=== PATIENT | female | born 1970 | race Caucasian/White ===

== ENCOUNTER 2023-03-09 07:34 | Outpatient (CLI) | payer OTHER, SELFPAY | END 2023-03-09 07:35 | disposition home or self-care (01) | LOC: NFLDREF 03-13 14:29 | PROVIDERS: Visit Provider Physician Assistant Medical | DX: R30.0 Dysuria (principal); N39.0 Urinary tract infection, site not specified; N30.00 Acute cystitis without hematuria | CPT/HCPCS: 87086; 87186 ==

== ENCOUNTER 2023-03-24 16:43 | Outpatient (CLI) | payer OTHER, SELFPAY | END 2023-03-24 16:44 | disposition home or self-care (01) | LOC: NFLDREF 03-25 11:26 | PROVIDERS: Visit Provider Nurse Practitioner | DX: N30.00 Acute cystitis without hematuria (principal); B96.20 Unspecified Escherichia coli [E. coli] as the cause of diseases classified elsewhere | CPT/HCPCS: 87086; 87186 ==

== ENCOUNTER 2023-04-28 08:24 | Outpatient (CLI) | payer OTHER, SELFPAY | END 2023-04-28 08:25 | disposition home or self-care (01) | LOC: NFLDREF 05-01 07:54 | PROVIDERS: PCP Family Medicine; Referring Provider Family Medicine; Visit Provider Family Medicine | DX: E11.43 Type 2 diabetes mellitus with diabetic autonomic (poly)neuropathy (principal); E78.2 Mixed hyperlipidemia; K90.0 Celiac disease | CPT/HCPCS: 80048; 80061 ==

== ENCOUNTER 2023-09-15 08:24 | Outpatient (CLI) | payer OTHER, SELFPAY | END 2023-09-15 08:25 | disposition home or self-care (01) | LOC: NFLDREF 09-16 08:24 | PROVIDERS: PCP Family Medicine; Referring Provider Family Medicine; Visit Provider Family Medicine | DX: N39.0 Urinary tract infection, site not specified (principal) | CPT/HCPCS: 87086; 87186 ==

== ENCOUNTER 2023-10-21 09:54 | Outpatient (CLI) | payer OTHER, SELFPAY | END 2023-10-21 09:55 | disposition home or self-care (01) | PROVIDERS: PCP Family Medicine; Visit Provider Family Medicine | DX: N92.1 Excessive and frequent menstruation with irregular cycle (principal); E10.9 Type 1 diabetes mellitus without complications; R53.83 Other fatigue | CPT/HCPCS: 80048; 82670; 84443 ==

== ENCOUNTER 2023-11-13 14:30 | Outpatient (CLI) | payer OTHER, SELFPAY | END 2023-11-13 14:31 | disposition home or self-care (01) | PROVIDERS: PCP Family Medicine; Visit Provider Nurse Practitioner Family | DX: M85.80 Other specified disorders of bone density and structure, unspecified site (principal); M79.671 Pain in right foot; M79.672 Pain in left foot; R53.83 Other fatigue; Z13.21 Encounter for screening for nutritional disorder | CPT/HCPCS: 82306; 82607; 83735; 84550 ==

== ENCOUNTER 2023-12-08 13:47 | Outpatient (CLI) | payer OTHER, SELFPAY ==
[2023-12-08 20:03] LABS: Chlamydia DNA Amplified* NOT DETECTED (No Detected); GC DNA Amplified* NOT DETECTED (No Detected)
== END 2023-12-08 13:48 | disposition home or self-care (01) ==
PROVIDERS: PCP Family Medicine; Visit Provider Physician Assistant
DX: Z01.419 Encounter for gynecological examination (general) (routine) without abnormal findings (principal); Z11.3 Encounter for screening for infections with a predominantly sexual mode of transmission; Z11.59 Encounter for screening for other viral diseases
CPT/HCPCS: 86592; 86703; 86803; 87340; 87491; 87591

== ENCOUNTER 2024-01-04 09:52 | Outpatient (CLI) | payer OTHER, SELFPAY ==
--- NOTE | 2024-01-04 10:18 | W.ANESCHARGE ---
Anesthesia Charges Start Date/Time Anesthesia Start Date: 01/04/24 Anesthesia Start Time: 10:25 Stop Date/Time Anesthesia Stop Date: 01/04/24 Anesthesia Stop Time: 10:47
--- NOTE | 2024-01-04 10:51 | W.ANESCHARGE ---
Anesthesia Charges Start Date/Time Anesthesia Start Date: 01/04/24 Anesthesia Start Time: 10:25 Stop Date/Time Anesthesia Stop Date: 01/04/24 Anesthesia Stop Time: 10:47
== END 2024-01-04 09:53 | disposition home or self-care (01) ==
LOC: OP CLINIC 09:53
PROVIDERS: PCP Family Medicine; Visit Provider Surgery
DX: Z12.11 Encounter for screening for malignant neoplasm of colon (principal); Z83.719 Family history of colon polyps, unspecified
CPT/HCPCS: 00812; 45378; J2704

== ENCOUNTER 2024-01-12 15:04 | Outpatient (CLI) | payer OTHER, SELFPAY ==
--- NOTE | 2024-01-12 15:00 | CRLHL7_ITS ---
For Patients: As a result of the Century Cures Act, medical imaging exams and procedure reports are released immediately into your electronic medical record. You may view this report before your referring provider. If you have questions, please contact your health care provider. BILATERAL SCREENING MAMMOGRAM WITH COMPUTER-AIDED DETECTION AND TOMOSYNTHESIS TECHNIQUE: CC and MLO views were obtained. These mammographic images have been obtained using full-field digital technique. These mammographic images were interpreted with the benefit of computer-aided detection. Breast Tomosynthesis was used in this interpretation. COMPARISON FILM: 09/15/22, 11/22/19, 05/20/18. FINDINGS: The breasts are heterogeneously dense, which may obscure small masses. IMPRESSION: There is no radiographic evidence for malignancy. ASSESSMENT: BI-RADS Category 1: Negative RECOMMENDATION: Routine screening mammogram in 1 year. A lay language report of this examination will be provided to the patient. Pedro Gupta M.D. Diagnostic Radiologist [email or web address] SP/Dictated by: Pedro Gupta MD @ 01/13/2024 12:28:00 PM (Electronically Signed)
== END 2024-01-12 15:05 | disposition home or self-care (01) ==
LOC: MAMMO 15:05
PROVIDERS: PCP Family Medicine; Visit Provider Family Medicine
DX: Z12.31 Encounter for screening mammogram for malignant neoplasm of breast (principal); R92.333 Mammographic heterogeneous density, bilateral breasts
CPT/HCPCS: 77063; 77067

== ENCOUNTER 2024-05-13 11:48 | Outpatient (CLI) | payer OTHER, SELFPAY | END 2024-05-13 11:49 | disposition home or self-care (01) | LOC: NFLDREF 05-14 06:17 | PROVIDERS: PCP Family Medicine; Referring Provider Family Medicine; Visit Provider Nurse Practitioner Family | DX: N30.01 Acute cystitis with hematuria (principal); B96.20 Unspecified Escherichia coli [E. coli] as the cause of diseases classified elsewhere | CPT/HCPCS: 87086 ==

== ENCOUNTER 2024-05-28 20:58 | Inpatient (IN) | payer OTHER, SELFPAY ==
[2024-05-28] VITALS (20 sets, daily range): BP systolic 95–118; BP diastolic 54–78; PULSE 115–134; RESP 9–34; TEMP 37.7; O2SAT 92–97; BMI 26.6
--- NOTE | 2024-05-28 21:40 | CRLHL7_ITS ---
For Patients: As a result of the Century Cures Act, medical imaging exams and procedure reports are released immediately into your electronic medical record. You may view this report before your referring provider. If you have questions, please contact your health care provider. INDICATION: Concern for pyelonephritis. TECHNIQUE: CT abdomen and pelvis acquired with 78 cc Isovue-370 IV contrast. COMPARISON: None. FINDINGS: Lower chest: Mild bibasilar subsegmental atelectasis/scarring. Liver: Unremarkable. Normal in size and attenuation. No suspicious masses. Gallbladder and bile ducts: Cholecystectomy. No biliary dilatation. Pancreas: Unremarkable. No mass or inflammation. Spleen: Unremarkable. Normal in size. No masses. Adrenal glands: Unremarkable. No nodules. Kidneys: No suspicious masses or hydroureteronephrosis. Excreted contrast in the urinary collecting systems limits evaluation for small stones. Urinary bladder: Diffusely thick-walled with mild mucosal hyperenhancement. GI tract: Unremarkable. Normal in caliber. No sign of mass or inflammation. Normal appendix. Vasculature: Abdominal aorta is normal in caliber. Mesenteric arteries are patent. Lymph nodes: No lymphadenopathy. Peritoneum/Abdominal Wall: Unremarkable. No sign of mass or infiltration. No free air or significant free fluid. Pelvis: Right ovarian 4.5 cm cystic focus with an inferior septation measures just greater than simple fluid density. Bones: Unremarkable for age. IMPRESSION: 1. The urinary bladder is diffusely thick-walled with associated inflammatory changes, concerning for cystitis. No discrete findings to indicate pyelonephritis. 2. Mildly complex right ovarian 4.5 cm cyst. Please note that all CT scans at this facility use dose modulation, iterative reconstruction, and/or weight-based dosing when appropriate to reduce radiation dose to as low as reasonably achievable. Dictated by Julian Lyle MD @ 05/28/2024 11:57:48 PM (Electronically Signed)
--- NOTE | 2024-05-28 21:46 | ED_ITS ---
HPI - General Adult General Date Seen: 05/28/24 Chief complaint: Urogenital Problems, Female Stated complaint: diabetic issues, possible kidney infections Time Seen by Provider: 05/28/24 21:33 Source: patient Mode of arrival: ambulatory Limitations: no limitations History of Present Illness HPI narrative: Patient is a 53-year-old female presenting to emergency department for concerns of pyelonephritis. She is a diabetic and states she was treated with a UTI last month and she thought she was doing better up until today when she some knee head severe flank pain with the left worse than the right. States the pain seems to be coming and going along with episodes of nausea. Has been feeling chills and feverish but has not had any objective fevers. Has also had multiple episodes of vomiting and states she feels currently nauseated. Has noticed some dysuria That has restarted this morning also. denies chest pain, shortness of breath, headaches. States she is feeling lightheaded. Does feel mildly dehydrated. Has not been able to eat or drink anything all day. Has not noticed any diarrhea or constipation. No history of smoking. Has a previous cholecystectomy. No other concerns noted. Related Data Home Medications ?Medication ?Instructions ?Recorded ?Confirmed levonorgestrel (Mirena) 1 device intrauterine ONCE 03/09/23 05/13/24 subcutaneous insulin pump (t:slim 04/28/23 05/13/24 X2 Control-IQ) cholecalciferol (vitamin D3) 25 25 mcg PO QDAY 09/15/23 05/13/24 mcg (1,000 unit) capsule (Vitamin D3) Previous Rx's ?Medication ?Instructions ?Recorded blood-glucose sensor (Dexcom G6 #6 ea 07/14/23 Sensor device) blood-glucose transmitter (Dexcom #1 ea 07/14/23 G6 Transmitter device) Humalog U-100 Insulin 100 unit/mL 30 unit (0.3 mL) subcut QDAY #20 mL 10/21/23 subcutaneous solution (insulin lispro) escitalopram oxalate 5 mg tablet 5 mg PO QDAY #90 tabs 10/21/23 (Lexapro) Allergies Allergy/AdvReac Type Severity Reaction Status Date / Time gluten Allergy Severe Unknown Verified 05/28/24 23:38 metoclopramide Allergy Severe Verified 05/28/24 23:38 nitrofurantoin (From Allergy Intermediate Hives Verified 05/28/24 23:38 Macrobid) sertraline Allergy Mild Microscopic Verified 05/28/24 23:38 Colitis fluoxetine (From Prozac) AdvReac Unknown Fatigued Verified 05/28/24 23:38 Review of Systems Status of ROS: Reports: 10 or more systems reviewed and unremarkable except as noted in History and below [facility] Medical History Cataracts, bilateral ?H26.9 - Unspecified cataract (ICD-10) Fracture of right fibula ?S82.401A - Unspecified fracture of shaft of right fibula, initial encounter for closed fracture (ICD-10) Mixed hyperlipidemia ?E78.2 - Mixed hyperlipidemia (ICD-10) Diabetic gastroparesis ?E11.43 - Type 2 diabetes mellitus with diabetic autonomic (poly)neuropathy (ICD-10) ?K31.84 - Gastroparesis (ICD-10) Adjustment disorder with depressed mood ?F43.21 - Adjustment disorder with depressed mood (ICD-10) History of seizures ?Z87.898 - Personal history of other specified conditions (ICD-10) IUD (intrauterine device) in place ?Z97.5 - Presence of (intrauterine) contraceptive device (ICD-10) Osteopenia ?M85.80 - Other specified disorders of bone density and structure, unspecified site (ICD-10) Stable proliferative diabetic retinopathy of both eyes associated with type 1 diabetes mellitus ?E10.3553 - Type 1 diabetes mellitus with stable proliferative diabetic retinopathy, bilateral (ICD-10) Menometrorrhagia ?N92.1 - Excessive and frequent menstruation with irregular cycle (ICD-10) Celiac disease ?K90.0 - Celiac disease (ICD-10) Type 1 diabetes mellitus ?E10.9 - Type 1 diabetes mellitus without complications (ICD-10) Surgical History History of vaginal delivery History of trigger finger (05/16/22) ?Z87.39 - Personal history of other diseases of the musculoskeletal system and connective tissue (ICD-10) History of laser iridotomy (1994) ?Z98.890 - Other specified postprocedural states (ICD-10) History of panretinal photocoagulation (1997) ?Z98.890 - Other specified postprocedural states (ICD-10) History of open reduction and internal fixation (ORIF) procedure (2019) ?Z98.890 - Other specified postprocedural states (ICD-10) Pilonidal sinus (08/10/14) ?L05.92 - Pilonidal sinus without abscess (ICD-10) History of tonsillectomy (1993) ?Z90.89 - Acquired absence of other organs (ICD-10) History of cholecystectomy (1994) ?Z90.49 - Acquired absence of other specified parts of digestive tract (ICD- 10) Family History Sister Ovarian cancer, Onset Age: 42 Type 2 diabetes mellitus Primary biliary cholangitis, Onset Age: 47 Anxiety Asthma Chronic fatigue syndrome Depression Diabetes Drug abuse Thyroid disease Lymphoma, Onset Age: 58 Suicide attempt Brother Alcohol dependence Coagulation disorder Drug abuse Cancer of ethmoid sinus Aunt Breast cancer Father Coronary artery disease Glaucoma High blood pressure Mother Coronary artery disease Myocardial infarction High blood pressure Paternal Grandmother Glaucoma Maternal Grandmother Pancreatic cancer, Onset Age: 65 Maternal Grandfather Depression Suicide, Onset Age: 84 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 Alcohol use: 2-4 per week What is your current living situation?: I presently have a place to live Problems where you live: no known problems In the past 12 months, utilities in danger of being shut off: yes In past 12 months, lack of transportation kept you from medical appts, meetings, work, or getting things needed for daily living: no In the past 12 mos, have been you worried that your food would run out before you had money to buy more?: never true In the past 12 mos, the food you bought just didn't last and you didn't have money to buy more?: never true Smoking Status: Former smoker What tobacco products do you use: cigarettes Smoking quit date/years: <= 15 years ago Do you use any of these nicotine containing products: None Second hand tobacco smoke exposure: No How often does anyone, including family, friends and others, physically hurt you : never How often does anyone, including family, friends and others, insult or talk down to you: never How often does anyone, including family, friends and others, threaten you with harm: never How often does anyone, including family, friends and others, scream or curse at you: never Exam Narrative: Exam Narrative: Const: Well-nourished, Well-developed, in moderate distress Eyes: PERRL, no conjunctival injection, and symmetrical lids HENT: Atraumatic external nose and ears. Moist mucous membranes. Neck: Symmetric, trachea midline, No thyromegaly. CVS: tachycardic, No murmurs or gallops. Peripheral pulses 2+ and equal in all extremities RESP: Unlabored respiratory effort. Clear to auscultation bilaterally. GI: Mild suprapubic tenderness,Nondistended, No rebound or guarding. mild left CVA tenderness MSK:Extremities w/o deformity, Normal Active ROM Skin: Warm, Dry. No rashes or lesions. Neuro: Normal Muscle tone, No focal neurological deficits. Psych: Awake, Alert, & Oriented x3. Appropriate mood and affect. Const: Vital Signs, click to edit/add: Vital Signs - 24 hr 05/28/24 21:13 05/28/24 21:55 05/28/24 22:00 Temperature 99.8 F H Pulse Rate 132 H 126 H Pulse Rate [Pulse Oximeter] 134 H Respiratory Rate 24 9 L Blood Pressure Blood Pressure [Ri ght Upper Arm] 109/58 L Pulse Oximetry 93 92 93 Oxygen Delivery Me thod Room Air 05/28/24 22:02 05/28/24 22:07 05/28/24 22:11 Temperature Pulse Rate 127 H 128 H 127 H Pulse Rate [Pulse Oximeter] Respiratory Rate 21 23 19 Blood Pressure 108/54 L 118/61 113/70 Blood Pressure [Ri ght Upper Arm] Pulse Oximetry 94 95 95 Oxygen Delivery Me thod 05/28/24 22:15 05/28/24 22:16 05/28/24 22:21 Temperature Pulse Rate 126 H 125 H 125 H Pulse Rate [Pulse Oximeter] Respiratory Rate 22 21 20 Blood Pressure 115/59 L 117/60 Blood Pressure [Ri ght Upper Arm] Pulse Oximetry 94 94 94 Oxygen Delivery Me thod 05/28/24 22:27 05/28/24 22:45 05/28/24 22:46 Temperature Pulse Rate 125 H 124 H 122 H Pulse Rate [Pulse Oximeter] Respiratory Rate 23 34 H Blood Pressure 108/58 L Blood Pressure [Ri ght Upper Arm] Pulse Oximetry 94 96 97 Oxygen Delivery Me thod 05/28/24 22:48 05/28/24 23:00 05/28/24 23:15 Temperature Pulse Rate 120 H 116 H 118 H Pulse Rate [Pulse Oximeter] Respiratory Rate 12 17 12 Blood Pressure Blood Pressure [Ri ght Upper Arm] Pulse Oximetry 96 96 94 Oxygen Delivery Me thod 05/28/24 23:20 05/28/24 23:30 05/28/24 23:32 Temperature Pulse Rate 115 H 115 H 115 H Pulse Rate [Pulse Oximeter] Respiratory Rate 12 14 13 Blood Pressure 107/61 95/78 Blood Pressure [Ri ght Upper Arm] Pulse Oximetry 95 93 93 Oxygen Delivery Me thod Course Vital Signs Vital signs: Initial Vital Signs Temperature 99.8 F H 05/28/24 21:13 Temperature Source Temporal Artery Scan 05/28/24 21:13 Pulse Rate 134 H 05/28/24 21:13 Respiratory Rate 24 05/28/24 21:13 Blood Pressure 109/58 L 05/28/24 21:13 Blood Pressure Mean 75 05/28/24 21:13 Blood Pressure Position Sitting 05/28/24 21:13 Pulse Oximetry 93 05/28/24 21:13 Oxygen Delivery Method Room Air 05/28/24 21:13 Vital Signs Temperature 99.8 F H 05/28/24 21:13 Pulse Rate 134 H 05/28/24 21:13 Respiratory Rate 24 05/28/24 21:13 Blood Pressure 109/58 L 05/28/24 21:13 Pulse Oximetry 93 05/28/24 21:13 Oxygen Delivery Method Room Air 05/28/24 21:13 Temperature 99.8 F H 05/28/24 21:13 Pulse Rate 115 H 05/28/24 23:32 Respiratory Rate 13 05/28/24 23:32 Blood Pressure 95/78 05/28/24 23:32 Pulse Oximetry 93 05/28/24 23:32 Oxygen Delivery Method Room Air 05/28/24 21:13 Medications Administered Medications: Discontinued Medications Generic Name Dose Route Start Last Admin Trade Name Freq PRN Reason Stop Dose Admin Sodium Chloride 1,000 mls @ 1,000 mls/hr 05/28/24 21:45 05/28/24 23:31 0.9 % Sodium Chloride 1000 Ml IV 05/28/24 23:56 1,000 mls/hr .Q1H MELISSA Administration Ceftriaxone Sodium 1 gm/ 100 mls @ 200 mls/hr 05/28/24 22:23 05/28/24 23:40 Sodium Chloride IVPB 05/28/24 22:24 Infused ONCE ONE Infusion Morphine Sulfate 4 mg 05/28/24 22:50 05/28/24 23:10 Morphine 4 Mg/Ml Inj IVP 05/28/24 22:51 4 mg ONCE ONE Administration Ondansetron HCl 4 mg 05/28/24 22:50 05/28/24 23:05 Ondansetron 2 Mg/Ml Inj IVP 05/28/24 22:51 4 mg ONCE ONE Administration Medical Decision Making MDM Narrative Medical decision making narrative: patient is a 53-year-old female presenting to emergency department for left- sided flank pain. She does not have risk factors for or aortic aneurysm rupture and her symptoms seem more consistent with a pyelonephritis. Will do a CT scan with IV contrast for better evaluation. Differential also includes gastroenteritis, splenic infarctions, nephrolithiasis. She does meet SIRS crit eria and blood cultures and lactate will be ordered. Will also give her fluids per sepsis protocol as she is dehydrated and would benefit from the fluids either way. CBC, CMP, urinalysis, COVID/flu / RSV, EKG, troponin all ordered. Patient's white count came back elevated at 20.51. Lactate is 2.0. Rest for CBC and CMP showed no concerning findings. Viral swabs are negative. Urinalysis clearly shows signs of a UTI. She has already been given fluids per sepsis protocol and will be started on a g of Rocephin. previous urine cultures have all shown E coli sensitive to Rocephin. She is feeling better after the Zofran and morphine. patient has received about half her fluid so far and is still tachycardic. Lactate came back at 2.0. Considering she was recently on an antibiotic for UTI does not appear to have had her UTI resolved she does appear to have failed outpatient management. She is now septic I do believe she should be admitted for IV antibiotics. She is agreeable to this plan. She will be accepted to the hospitalist service Lab Data Labs: Lab Results 04/12/25 04/12/25 04/12/25 Range/Units 21:25 21:40 21:56 WBC 20.51 H (4.50-11.00) K/uL RBC 4.36 (4.00-5.20) m/uL Hgb 13.9 (12.0-16.0) gm/dL Hct 41.6 (33.0-51.0) % MCV 95 (80-100) fL MCH 32 (26-34) pg MCHC 33 (32-36) gm/dL RDW Coeff of Shahe[place] 13.1 (11.5-15.5) % Plt Count 345 (140-440) K/uL Neut % (Auto) 93.9 H (42.0-72.0) % Lymph % (Auto) 1.9 L (20-44) % [place] % (Auto) 3.5 (0.0-11.0) % Eos % (Auto) 0.4 (0.0-7.0) % Baso % (Auto) 0.1 (0.0-3.0) % Neut # (Auto) 19.30 H (1.7-7.0) K/uL Lymph # (Auto) 0.40 L (0.90-2.90) K/uL [place] # (Auto) 0.70 (0.00-0.90) K/UL Eos # (Auto) 0.10 (0.00-0.50) K/uL Baso # (Auto) 0.00 (0.00-0.30) K/uL Abs Immat Gran (auto) 0.00 (0.00-0.30) K/uL Imm/Tot Granulo (auto) 0.2 % Sodium 134 L (135-149) mmol/L Potassium 3.7 (3.6-5.1) mmol/L Chloride 105 (96-114) mmol/L Carbon Dioxide 21 (20-32) mmol/L Anion Gap 8 (7-15) mEq/L BUN 17 (7-30) mg/dL Creatinine 0.9 (0.5-1.5) mg/dL Estimated Creat Clear 60.99 Estimated GFR 76 ml/min Glucose 93 (60-115) mg/dL Lactate 2.0 H (0.5-1.9) mmol/L Calcium 8.9 (8.4-10.6) mg/dL Total Bilirubin 1.1 (0.1-1.5) mg/dL AST 26 (12-35) U/L ALT 21 (4-35) U/L Alkaline Phosphatase 95 (40-150) U/L Troponin I < 0.01 (0.01-0.04) ng/mL Total Protein 6.8 (6.0-8.3) g/dL Albumin 3.9 (3.3-5.0) g/dL Urine Color [place] A (Yellow) Urine Appearance Cloudy A (Clear) Urine pH 5.5 (5.0-8.5) Ur Specific [place] 1.025 (1.000-1.030) Urine Protein 1+ A (Negative) Urine Glucose (UA) Negative (Negative) Urine Ketones 2+ A (Negative) Urine Blood 1+ A (Negative) Urine Nitrite Positive A (Negative) Urine Bilirubin 1+ A (Negative) Urine Urobilinogen 0.2 (0.2-1.0) Ur Leukocyte Esterase 1+ A (Negative) Urine RBC 0-2 (0-2) Urine WBC 50-100 A (0-5) Ur Squamous Epith Cells Few (None-Few) Urine Bacteria Few A (None) SARS-CoV-2 (PCR) Negative SARS-CoV-2 (Negative) Influenza Type A (PCR) Negative PCR FLU A (Negative) Influenza Type B (PCR) Negative PCR FLU B (Negative) RSV (PCR) Negative PCR RSV (Negative) POC Creatinine 1.0 (0.6-1.3) mg/dl 05/28/24 Range/Units 23:40 WBC (4.50-11.00) K/uL RBC (4.00-5.20) m/uL Hgb (12.0-16.0) gm/dL Hct (33.0-51.0) % MCV (80-100) fL MCH (26-34) pg MCHC (32-36) gm/dL RDW Coeff of Shaheen (11.5-15.5) % Plt Count (140-440) K/uL Neut % (Auto) (42.0-72.0) % Lymph % (Auto) (20-44) % [place] % (Auto) (0.0-11.0) % Eos % (Auto) (0.0-7.0) % Baso % (Auto) (0.0-3.0) % Neut # (Auto) (1.7-7.0) K/uL Lymph # (Auto) (0.90-2.90) K/uL [place] # (Auto) (0.00-0.90) K/UL Eos # (Auto) (0.00-0.50) K/uL Baso # (Auto) (0.00-0.30) K/uL Abs Immat Gran (auto) (0.00-0.30) K/uL Imm/Tot Granulo (auto) % Sodium (135-149) mmol/L Potassium (3.6-5.1) mmol/L Chloride (96-114) mmol/L Carbon Dioxide (20-32) mmol/L Anion Gap (7-15) mEq/L BUN (7-30) mg/dL Creatinine (0.5-1.5) mg/dL Estimated Creat Clear Estimated GFR ml/min Glucose (60-115) mg/dL Lactate 1.0 (0.5-1.9) mmol/L Calcium (8.4-10.6) mg/dL Total Bilirubin (0.1-1.5) mg/dL AST (12-35) U/L ALT (4-35) U/L Alkaline Phosphatase (40-150) U/L Troponin I (0.01-0.04) ng/mL Total Protein (6.0-8.3) g/dL Albumin (3.3-5.0) g/dL Urine Color (Yellow) Urine Appearance (Clear) Urine pH (5.0-8.5) Ur Specific [place] (1.000-1.030) Urine Protein (Negative) Urine Glucose (UA) (Negative) Urine Ketones (Negative) Urine Blood (Negative) Urine Nitrite (Negative) Urine Bilirubin (Negative) Urine Urobilinogen (0.2-1.0) Ur Leukocyte Esterase (Negative) Urine RBC (0-2) Urine WBC (0-5) Ur Squamous Epith Cells (None-Few) Urine Bacteria (None) SARS-CoV-2 (PCR) (Negative) Influenza Type A (PCR) (Negative) Influenza Type B (PCR) (Negative) RSV (PCR) (Negative) POC Creatinine (0.6-1.3) mg/dl Imaging Data CT scan abdomen and pelvis: Radiologist's impression: 1. The urinary bladder is diffusely thick-walled with associated inflammatory changes, concerning for cystitis. No discrete findings to indicate pyelonephritis. 2. Mildly complex right ovarian 4.5 cm cyst. Please note that all CT scans at this facility use dose modulation, iterative reconstruction, and/or weight-based dosing when appropriate to reduce radiation dose to as low as reasonably achievable. Dictated by Julian Lyle MD @ 05/28/2024 11:57:48 PM ECG Data Attestation: I personally reviewed and interpreted this ECG as follows: Prior ECG tracings: not available for review Interpretation: Sinus tachycardia with a rate of 129 beats per minute, normal intervals, normal axis, no ST or T-wave abnormalities. Critical Care Time Critical Care Time Critical Care Time: Yes Attestation: The patient required my highest level preparedness to intervene emergently and I personally spent this critical care time directly and personally managing the patient. This critical care time included: Obtaining a history; Examining the patient; Pulse oximetry; Ordering and reviewing of studies; Arranging urgent treatment with development of a management plan; Evaluation of patients response to treatment; Frequent reassessment discussions with other providers. This critical care time was performed to assess and manage the high probability of imminent life-threatening deterioration that could result in multiorgan failure. It was exclusive of separate billable procedures and treating other patients and teaching time. Total Critical Care Time in Minutes: 35 Discharge Plan Discharge Clinical Impression: Urinary tract infection Qualifiers: Urinary tract infection type: acute cystitis Hematuria presence: without hematuria Qualified Code(s): N30.00 - Acute cystitis without hematuria Sepsis Qualifiers: Sepsis type: sepsis due to unspecified organism Sepsis acute organ dysfunction status: without acute organ dysfunction Qualified Code(s): A41.9 - Sepsis, unspecified organism Prescriptions: No Action insulin lispro [Humalog U-100 Insulin] 100 unit/mL solution 30 unit subcut QDAY Qty: 20 5RF escitalopram oxalate [Lexapro] 5 mg tablet 5 mg PO QDAY Qty: 90 3RF Mirena 21 mcg/24 hours (8 yrs) 52 mg intrauterine device 1 device intrauterine ONCE Rx Instructions: as a single dose (DME) t:slim X2 Control-IQ Misc See Rx Instructions .Route Rx Instructions: As directed cholecalciferol (vitamin D3) [Vitamin D3] 25 mcg (1,000 unit) capsule 25 mcg PO QDAY Rx Instructions: stops during summer months (DME) Dexcom G6 Transmitter Device See Rx Instructions .Route Qty: 1 0RF Rx Instructions: As directed (DME) Dexcom G6 Sensor Device See Rx Instructions .Route Qty: 6 5RF Rx Instructions: As directed Follow Up/Referrals: Pedro Bedoya MD [Primary Care Provider] -
[2024-05-28 21:49] LABS: Appearance Urine Cloudy (Clear); Bilirubin Urine 1+ (Negative); Blood Urine 1+ (Negative); Color Urine Orange (Yellow); Glucose Urine Negative (Negative); Ketones Urine 2+ (Negative); Leukocyte Esterase Urine 1+ (Negative); Nitrite Urine Positive (Negative); Protein Urine 1+ (Negative); Specific Gravity Urine 1.025 (1.000-1.030); Urobilinogen Urine 0.2 (0.2-1.0); pH Urine 5.5 (5.0-8.5)
[2024-05-28] MEDS: 0.9 % SODIUM CHLORIDE 1000 ml 1,000 ML IV ×2 (21:53→23:31)
[2024-05-28 21:54] LABS: Basophils Percent Auto 0.1 % (0.0-3.0); Eosinophils Percent Auto 0.4 % (0.0-7.0); Hematocrit 41.6 % (33.0-51.0); Hemoglobin* 13.9 gm/dL (12.0-16.0); Immature Granulocytes Pct Auto 0.2 %; Lymphocytes Percent Auto 1.9 % (20-44); Mean Corpuscular HGB Conc 33 gm/dL (32-36); Mean Corpuscular Hemoglobin 32 pg (26-34); Mean Corpuscular Volume 95 fL (80-100); Monocytes Percent Auto 3.5 % (0.0-11.0); Neutrophils Percent Auto 93.9 % (42.0-72.0); Platelet Count* 345 K/uL (140-440); RDW Coefficient of Variation % 13.1 % (11.5-15.5); Red Blood Count 4.36 m/uL (4.00-5.20); White Blood Count* 20.51 K/uL (4.50-11.00)
[2024-05-28 22:02] LABS: Bacteria Urine Few; RBC Urine 0-2 (0-2); Squamous Epithelial Cell Urine Few (None-Few); WBC Urine 50-100 (0-5)
[2024-05-28 22:04] LABS: Slide Review Reflex No
[2024-05-28 22:08] LABS: Albumin* 3.9 g/dL (3.3-5.0); Chloride* 105 mmol/L (96-114)
[2024-05-28 22:09] LABS: Potassium* 3.7 mmol/L (3.6-5.1); Sodium* 134 mmol/L (135-149)
[2024-05-28 22:11] LABS: Alanine Aminotransferase* 21 U/L (4-35); Alkaline Phosphatase* 95 U/L (40-150); Anion Gap 8 mEq/L (7-15); Aspartate Amino Transferase* 26 U/L (12-35); Bilirubin Total* 1.1 mg/dL (0.1-1.5); Blood Urea Nitrogen* 17 mg/dL (7-30); Carbon Dioxide* 21 mmol/L (20-32); Creatinine* 0.9 mg/dL (0.5-1.5); Est. Creatinine Clearance* 60.99; Estimated Glomerular Filt Rate 76 ml/min; Total Protein* 6.8 g/dL (6.0-8.3)
[2024-05-28 22:12] LABS: Calcium* 8.9 mg/dL (8.4-10.6); Glucose* 93 mg/dL (60-115)
[2024-05-28 22:30] LABS: Troponin I* < 0.01 ng/mL (0.01-0.04)
[2024-05-28] MEDS: cefTRIAXone 1 GM in 0.9 % SODIUM CHLORIDE Mini-bag 100 ML IVPB (22:50)
[2024-05-28] MEDS: ONDANSETRON 2 MG/ML inj 4 MG IVP (23:05)
[2024-05-28] MEDS: MORPHINE 4 MG/ML INJ IVP (23:10)
[2024-05-28 23:40] LABS: PCR FLU A Negative PCR FLU A (Negative); PCR FLU B Negative PCR FLU B (Negative); PCR RSV Negative PCR RSV (Negative); SARS PCR* Negative SARS-CoV-2 (Negative)
[2024-05-29] VITALS (14 sets, daily range): BP systolic 83–118; BP diastolic 46–70; PULSE 86–111; RESP 13–21; TEMP 36.7–37.3; O2SAT 90–96; BMI 28.0
--- NOTE | 2024-05-29 00:27 | W.PM.THH&P_ITS ---
Telehealth- H&P: HPI History of Present Illness Date Seen: 05/29/24 Chief complaint: diabetic issues, possible kidney infections Narrative: Debora Barrera is seen as an Interactive Telehealth visit. Debora Barrera is a 53 year old female with a past medical history notable for type I on long- term insulin, celiac disease who presented to urgent care 14 days prior to admission with dysuria and frequency, she had a abnormal UA and was prescribed Bactrim, urine culture eventually showed E. coli resistant to Bactrim. The patient reports she was called in antibiotics were switched to some sort of cephalosporin although she was not clear which medication it was. She was taking her medication as directed and felt better. However on the day prior to admission she developed flank pain, dysuria, nausea and vomiting. She stated that she was very weak. She was so weak she could barely get out of bed. Her family was concerned and convinced her to come in the ER. She said she had shaking chils and sweats.. She did have some left-sided flank pain but she had phil very active because she had phil alonsoing beter after treating the UTI and moving a lot of things over the past few days so she thinks that this might be musculoskeletal. No chest pain. No shortnes of breath. She presented to the ER and was noted to be tachycardic, febrile and had a white count of 20,000. UA was concerning for continued infection. CT was obtained and showed evidence of cystitis without pyelonephritis. Review of Systems Status of ROS: Reports: 10 or more systems reviewed and unremarkable except as noted in History and below [facility] Medical History Cataracts, bilateral ?H26.9 - Unspecified cataract (ICD-10) Fracture of right fibula ?S82.401A - Unspecified fracture of shaft of right fibula, initial encounter for closed fracture (ICD-10) Mixed hyperlipidemia ?E78.2 - Mixed hyperlipidemia (ICD-10) Diabetic gastroparesis ?E11.43 - Type 2 diabetes mellitus with diabetic autonomic (poly)neuropathy (ICD-10) ?K31.84 - Gastroparesis (ICD-10) Adjustment disorder with depressed mood ?F43.21 - Adjustment disorder with depressed mood (ICD-10) History of seizures ?Z87.898 - Personal history of other specified conditions (ICD-10) IUD (intrauterine device) in place ?Z97.5 - Presence of (intrauterine) contraceptive device (ICD-10) Osteopenia ?M85.80 - Other specified disorders of bone density and structure, unspecified site (ICD-10) Stable proliferative diabetic retinopathy of both eyes associated with type 1 diabetes mellitus ?E10.3553 - Type 1 diabetes mellitus with stable proliferative diabetic retinopathy, bilateral (ICD-10) Menometrorrhagia ?N92.1 - Excessive and frequent menstruation with irregular cycle (ICD-10) Celiac disease ?K90.0 - Celiac disease (ICD-10) Type 1 diabetes mellitus ?E10.9 - Type 1 diabetes mellitus without complications (ICD-10) Surgical History History of vaginal delivery History of trigger finger (05/16/22) ?Z87.39 - Personal history of other diseases of the musculoskeletal system and connective tissue (ICD-10) History of laser iridotomy (1994) ?Z98.890 - Other specified postprocedural states (ICD-10) History of panretinal photocoagulation (1997) ?Z98.890 - Other specified postprocedural states (ICD-10) History of open reduction and internal fixation (ORIF) procedure (2019) ?Z98.890 - Other specified postprocedural states (ICD-10) Pilonidal sinus (08/10/14) ?L05.92 - Pilonidal sinus without abscess (ICD-10) History of tonsillectomy (1993) ?Z90.89 - Acquired absence of other organs (ICD-10) History of cholecystectomy (1994) ?Z90.49 - Acquired absence of other specified parts of digestive tract (ICD- 10) Family History Sister Ovarian cancer, Onset Age: 42 Type 2 diabetes mellitus Primary biliary cholangitis, Onset Age: 47 Anxiety Asthma Chronic fatigue syndrome Depression Diabetes Drug abuse Thyroid disease Lymphoma, Onset Age: 58 Suicide attempt Brother Alcohol dependence Coagulation disorder Drug abuse Cancer of ethmoid sinus Aunt Breast cancer Father Coronary artery disease Glaucoma High blood pressure Mother Coronary artery disease Myocardial infarction High blood pressure Paternal Grandmother Glaucoma Maternal Grandmother Pancreatic cancer, Onset Age: 65 Maternal Grandfather Depression Suicide, Onset Age: 84 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 Alcohol use: 2-4 per week What is your current living situation?: I presently have a place to live Problems where you live: no known problems Problems where you live details: N/A In the past 12 months, utilities in danger of being shut off: no In past 12 months, lack of transportation kept you from medical appts, meetings, work, or getting things needed for daily living: no In the past 12 mos, have been you worried that your food would run out before you had money to buy more?: never true In the past 12 mos, the food you bought just didn't last and you didn't have money to buy more?: never true Highest level of school completed/degree received: Associate degree: occupational, technical, vocational program Smoking Status: Former smoker What tobacco products do you use: cigarettes Smoking quit date/years: <= 15 years ago Do you use any of these nicotine containing products: None Second hand tobacco smoke exposure: No How often do you have a drink containing alcohol: 2-3 times a week Alcohol type: wine How many standard drinks containing alcohol do you have on a typical day: 1 or 2 How often do you have six or more drinks on one occasion: Never AUDIT-C Alcohol total score: 3 Non-prescribed substance use: denies use Caffeine: Yes How often does anyone, including family, friends and others, physically hurt you : never How often does anyone, including family, friends and others, insult or talk down to you: never How often does anyone, including family, friends and others, threaten you with harm: never How often does anyone, including family, friends and others, scream or curse at you: never service: No Meds Home Medications and Allergies Home Medications ?Medication ?Instructions ?Recorded ?Confirmed ?Type levonorgestrel (Mirena) 1 device intrauterine ONCE 03/09/23 05/13/24 History subcutaneous insulin pump (t:slim 04/28/23 05/13/24 History X2 Control-IQ) cholecalciferol (vitamin D3) 25 25 mcg PO QDAY 07/30/24 03/28/25 History mcg (1,000 unit) capsule (Vitamin D3) Allergies Allergy/AdvReac Type Severity Reaction Status Date / Time gluten Allergy Severe Unknown Verified 05/28/24 23:38 metoclopramide Allergy Severe Verified 05/28/24 23:38 nitrofurantoin (From Allergy Intermediate Hives Verified 05/28/24 23:38 Macrobid) sertraline Allergy Mild Microscopic Verified 05/28/24 23:38 Colitis fluoxetine (From Prozac) AdvReac Unknown Fatigued Verified 05/28/24 23:38 Exam Narrative Exam Narrative: Physical Exam GENERAL: ?vital signs reviewed, well developed and nourished,[place] but HEENT: pupils are equal round extraocular movements are grossly within normal limits and oral mucosa his dry NECK: Supple without lymphadenopathy or thyromegaly according to nursing staff examination observation HEART: Tachycardic rate and regular rhythm without any rubs, murmurs, or gallops. LUNGS: Clear to auscultation bilaterally with good air movement throughout ABDOMEN: Observation from nurse assisted exam, abdomen appears soft, mild suprapuibic tenderness, and nondistended with Positive bowel sounds noted. EXTREMITIES: Strength and sensation is observed to be grossly within normal limits in the upper and lower extremities.? No focal strength deficit is observed. SKIN:? Observed warm and dry with color normal Const Vital Signs, click to edit/add: Vital Signs - 24 hr 05/28/24 21:13 05/28/24 21:55 05/28/24 22:00 Temperature 99.8 F H Pulse Rate 132 H 126 H Pulse Rate [Pulse Oximeter] 134 H Respiratory Rate 24 9 L Blood Pressure Blood Pressure [Right Upper Arm] 109/58 L Pulse Oximetry 93 92 93 Oxygen Delivery Method Room Air 05/28/24 22:02 05/28/24 22:07 05/28/24 22:11 Temperature Pulse Rate 127 H 128 H 127 H Pulse Rate [Pulse Oximeter] Respiratory Rate 21 23 19 Blood Pressure 108/54 L 118/61 113/70 Blood Pressure [Right Upper Arm] Pulse Oximetry 94 95 95 Oxygen Delivery Method 05/28/24 22:15 05/28/24 22:16 05/28/24 22:21 Temperature Pulse Rate 126 H 125 H 125 H Pulse Rate [Pulse Oximeter] Respiratory Rate 22 21 20 Blood Pressure 115/59 L 117/60 Blood Pressure [Right Upper Arm] Pulse Oximetry 94 94 94 Oxygen Delivery Method 05/28/24 22:27 05/28/24 22:45 05/28/24 22:46 Temperature Pulse Rate 125 H 124 H 122 H Pulse Rate [Pulse Oximeter] Respiratory Rate 23 34 H Blood Pressure 108/58 L Blood Pressure [Right Upper Arm] Pulse Oximetry 94 96 97 Oxygen Delivery Method 05/28/24 22:48 05/28/24 23:00 05/28/24 23:15 Temperature Pulse Rate 120 H 116 H 118 H Pulse Rate [Pulse Oximeter] Respiratory Rate 12 17 12 Blood Pressure Blood Pressure [Right Upper Arm] Pulse Oximetry 96 96 94 Oxygen Delivery Method 05/28/24 23:20 05/28/24 23:30 05/28/24 23:32 Temperature Pulse Rate 115 H 115 H 115 H Pulse Rate [Pulse Oximeter] Respiratory Rate 12 14 13 Blood Pressure 107/61 95/78 Blood Pressure [Right Upper Arm] Pulse Oximetry 95 93 93 Oxygen Delivery Method Hospitalist - H&P: Result Labs Labs: Short CBC 05/28/24 Range/Units 21:40 WBC 20.51 H (4.50-11.00) K/uL Hgb 13.9 (12.0-16.0) gm/dL Hct 41.6 (33.0-51.0) % Plt Count 345 (140-440) K/uL BMP 05/28/24 21:40 Sodium 134 L Potassium 3.7 Chloride 105 Carbon Dioxide 21 BUN 17 Creatinine 0.9 Glucose 93 Calcium 8.9 Cardiac Enzymes 05/28/24 Range/Units 21:40 Troponin I < 0.01 (0.01-0.04) ng/mL Liver Function 05/28/24 Range/Units 21:40 Total Bilirubin 1.1 (0.1-1.5) mg/dL AST 26 (12-35) U/L ALT 21 (4-35) U/L Alkaline Phosphatase 95 (40-150) U/L Albumin 3.9 (3.3-5.0) g/dL Urine 05/28/24 Range/Units 21:25 Urine Color [place] A (Yellow) Urine Appearance Cloudy A (Clear) Urine pH 5.5 (5.0-8.5) Ur Specific [place] 1.025 (1.000-1.030) Urine Protein 1+ A (Negative) Urine Glucose (UA) Negative (Negative) Assessment and Plan Assessment and plan (1) Sepsis: Status: Acute (2) Urinary tract infection: Status: Acute (3) Type 1 diabetes mellitus: Problem comment: Diagnosed at age 2 Status: Chronic Plan Assessment and Plan Sepsis due to urinary source Meets sepsis criteria with tachycardia, leukocytosis, hypotension and fever noted prior to admission Patient had a urinary tract infection that was treated with Bactrim followed by an oral cephalosporin, unclear which. Of note urine culture showed E. coli resistant to ampicillin, Unasyn, cefazolin and Bactrim. Ceftriaxone 2 g every 24 hours due to sepsis Follow-up blood and urine cultures Initial lactate was 2.0 After IV fluids patient had good perfusion but then developed some hypotension that was asymptomatic, additional liter of fluids was given CT of the abdomen pelvis was obtained: Evidence of acute cystitis without pyelonephritis Left-sided back pain Suspect musculoskeletal Type 1 diabetes Patient prefers to use her home insulin pump She is awake and alert and able to control it currently Hyponatremia Mild, recheck in a.m. Full code Lovenox Prior to admision home medications that were felt to be neded imediately have phil ordered. The remainder of the home medications deuce await pharmacy reconciliation and deuce be ordered by the atending provider in the a.m. Telehealth Visit: Today's History and Physical is provided via interactive telehealth by Dr. Mayank Peterson MD. Patient is located at [facility]. Provider is located at [facility]. Nursing staf asisted with the patient's exam. The visit being done today mets criteria for a telehealth visit and the patient or patients parent/guardian is aware the visit is a telehealth visit. Camera Start Time: 048 Camera End Time: 057 Medical Complexity: High ~~~~~~~~~~~~~~~~ Dr. Mayank Peterson Telehealth: Statement Statement Telehealth Visit: Today's History and Physical is provided via interactive telehealth by Mayank Peterson MD.? Patient is located at [facility].? Provider is located at [facility].? Nursing staff assisted with the patient's exam. The visit being done today meets criteria for a telehealth visit and the patient or patient?s parent/guardian is aware the visit is a telehealth visit.
--- NOTE | 2024-05-29 00:34 | ED.NURSE ---
Report to JENI Diaz
[2024-05-29] MEDS: 0.9 % SODIUM CHLORIDE 1000 ml 1,000 ML IV ×2 (05:24→11:01)
[2024-05-29] MEDS: 0.9 % SODIUM CHLORIDE 1000 ml 1,000 ML 75 ML IV ×2 (05:24→17:16)
[2024-05-29] MEDS: MORPHINE 4 MG/ML INJ IVP (05:51)
--- NOTE | 2024-05-29 06:15 | PC.NURSE ---
Shift note: Patient arrived at the floor at 0040 on a bed. Alert and oriented on arrival. She reported flank pain rated at 2. She received Morphine from ED. Patient ambulated independently but endorsed weakness and feeling sick. Patient voided upon arrival to her room. Vitally stable on arrival. At 0220, Bp recorded 83/46 but nonsymptomatic. MD informed through [facility] and gave verbal order to administer 1L of N/S bolus. Bp rechecked at 0310 was 103/53. No fever recorded. Patient asked for diet sprite. Blood sugar checked was 112. Diet sprite provided.
--- NOTE | 2024-05-29 07:26 | P.IMPN_ITS ---
Assessment and Plan Assessment and plan (1) Sepsis: Problem comment: - ER: WBC of 20 with PMN predominance, BP 83/46, HR 120s, Tmax 99.8, lactate 2.0 - has received fluid resuscitation and lactate normalized 05/29 - WBC, HR improving, continue to monitor BP and provide fluid resuscitation Status: Acute (2) Urinary tract infection: Problem comment: - likely cause of sepsis - on Ceftriaxone (05/28), awaiting cultures Status: Acute (3) Type 1 diabetes mellitus: Problem comment: - diagnosed at age 2, has DexCom and insulin pump, last A1C 7.3 - increases risk of complications from UTI/sepsis Status: Chronic (4) Elevated LFTs: Problem comment: - noted 05/29/24, asymptomatic - no abnormalities on 05/28/24 CT scan - likely 2/2 shock liver in the setting of acute illness, negative GC testing 12/09 - follow, monitor for symptoms Status: Acute Plan - per above - continues to require inpatient level of care as we monitor hypotension, fluid balance, LFTs, and blood glucose in this critically ill patient - await blood and urine culture results Subjective Date Seen: 05/29/24 Interval history: Debora is a 53 yo female with T1DM who was admitted to the hospital overnight for UTI with concern for sepsis. Noted 2 days of dysuria prior to admission; ER imaging + for cystitis. Concern for sepsis given WBC of 20 with PMN predominance, hypotension with BP mikki of 83/46, tachycardia with max HR in the 130s, Tmax 99.8, lactate 2.0. She had been seen in UC for UTI symptoms on 05/13, Rx Bactrim. Urine cx resistant to this; transitioned to Cephalexin (although Int susceptibility to Cefazolin). Overnight, has been feeling better. BPs still on the low side (90s/50s), HR has improved. This morning, WBC has improved from 20 -->11, LFTs have increased (AST and ALT: 20s --> 332 and 127, bilirubin and Alk phos normal). No abdominal pain or nausea, tolerating po intake. Recently negative Gonorrhea screen. Has insulin pump and DexCom, BGs have been stable. No concerns for hospitalist team this morning, still feels sick, but better than last night. Exam Narrative: Exam Narrative: GEN: Alert and oriented, laying comfortably in bed, appears ill but nontoxic HEENT: EOMIs bilaterally, no scleral icterus CV: RRR with heart rate in the 90s during my exam, no concerning murmurs R: LCTA bilaterally without concerning wheezing, air movement adequate Ab: Soft and nontender without hepatosplenomegaly Back: No CVA TTP Ext: wwp, no concerning edema Skin: No concerning skin lesions or rashes on exposed skin Neuro: Nonfocal Psych: Appropriate Const: Vital Signs, click to edit/add: Vital Signs - 24 hr 05/28/24 21:13 05/28/24 21:55 05/28/24 22:00 Temperature 99.8 F H Pulse Rate 132 H 126 H Pulse Rate [Pulse Oximeter] 134 H Pulse Rate [Right Pulse Oximeter] Respiratory Rate 24 9 L Blood Pressure Blood Pressure [Ri ght Arm] Blood Pressure [Ri ght Upper Arm] 109/58 L Pulse Oximetry 93 92 93 Oxygen Delivery Me thod Room Air 05/28/24 22:02 05/28/24 22:07 05/28/24 22:11 Temperature Pulse Rate 127 H 128 H 127 H Pulse Rate [Pulse Oximeter] Pulse Rate [Right Pulse Oximeter] Respiratory Rate 21 23 19 Blood Pressure 108/54 L 118/61 113/70 Blood Pressure [Ri ght Arm] Blood Pressure [Ri ght Upper Arm] Pulse Oximetry 94 95 95 Oxygen Delivery Me thod 05/28/24 22:15 05/28/24 22:16 05/28/24 22:21 Temperature Pulse Rate 126 H 125 H 125 H Pulse Rate [Pulse Oximeter] Pulse Rate [Right Pulse Oximeter] Respiratory Rate 22 21 20 Blood Pressure 115/59 L 117/60 Blood Pressure [Ri ght Arm] Blood Pressure [Ri ght Upper Arm] Pulse Oximetry 94 94 94 Oxygen Delivery Me thod 05/28/24 22:27 05/28/24 22:45 05/28/24 22:46 Temperature Pulse Rate 125 H 124 H 122 H Pulse Rate [Pulse Oximeter] Pulse Rate [Right Pulse Oximeter] Respiratory Rate 23 34 H Blood Pressure 108/58 L Blood Pressure [Ri ght Arm] Blood Pressure [Ri ght Upper Arm] Pulse Oximetry 94 96 97 Oxygen Delivery Me thod 05/28/24 22:48 05/28/24 23:00 05/28/24 23:15 Temperature Pulse Rate 120 H 116 H 118 H Pulse Rate [Pulse Oximeter] Pulse Rate [Right Pulse Oximeter] Respiratory Rate 12 17 12 Blood Pressure Blood Pressure [Ri ght Arm] Blood Pressure [Ri ght Upper Arm] Pulse Oximetry 96 96 94 Oxygen Delivery Me thod 05/28/24 23:20 05/28/24 23:30 05/28/24 23:32 Temperature Pulse Rate 115 H 115 H 115 H Pulse Rate [Pulse Oximeter] Pulse Rate [Right Pulse Oximeter] Respiratory Rate 12 14 13 Blood Pressure 107/61 95/78 Blood Pressure [Ri ght Arm] Blood Pressure [Ri ght Upper Arm] Pulse Oximetry 95 93 93 Oxygen Delivery Me thod 05/28/24 23:33 05/28/24 23:45 05/29/24 00:00 Temperature Pulse Rate 117 H 115 H 109 H Pulse Rate [Pulse Oximeter] Pulse Rate [Right Pulse Oximeter] Respiratory Rate 13 16 16 Blood Pressure Blood Pressure [Ri ght Arm] Blood Pressure [Ri ght Upper Arm] Pulse Oximetry 94 94 94 Oxygen Delivery Me thod 05/29/24 00:02 05/29/24 00:02 05/29/24 00:02 Temperature Pulse Rate 106 H 106 H 106 H Pulse Rate [Pulse Oximeter] Pulse Rate [Right Pulse Oximeter] Respiratory Rate 17 17 17 Blood Pressure 98/66 98/66 98/66 Blood Pressure [Ri ght Arm] Blood Pressure [Ri ght Upper Arm] Pulse Oximetry 95 95 95 Oxygen Delivery Me thod 05/29/24 00:16 05/29/24 00:51 05/29/24 00:51 Temperature 99.1 F Pulse Rate 107 H Pulse Rate [Pulse Oximeter] Pulse Rate [Right Pulse Oximeter] 111 H Respiratory Rate 13 16 16 Blood Pressure Blood Pressure [Ri ght Arm] 108/57 L Blood Pressure [Ri ght Upper Arm] Pulse Oximetry 95 96 96 Oxygen Delivery Me thod Room Air Room Air 05/29/24 03:00 05/29/24 03:10 Temperature 98.8 F Pulse Rate Pulse Rate [Pulse Oximeter] Pulse Rate [Right Pulse Oximeter] 107 H Respiratory Rate 16 Blood Pressure Blood Pressure [Ri ght Arm] 83/46 L 103/53 L Blood Pressure [Ri ght Upper Arm] Pulse Oximetry 90 Oxygen Delivery Me thod Room Air Labs Labs: Laboratory Results - last 24 hr 05/28/24 05/28/24 05/28/24 21:25 21:40 21:56 WBC 20.51 H RBC 4.36 Hgb 13.9 Hct 41.6 MCV 95 MCH 32 MCHC 33 RDW Coeff of [place] 13.1 Plt Count 345 Neut % (Auto) 93.9 H Lymph % (Auto) 1.9 L [place] % (Auto) 3.5 Eos % (Auto) 0.4 Baso % (Auto) 0.1 Neut # (Auto) 19.30 H Lymph # (Auto) 0.40 L [place] # (Auto) 0.70 Eos # (Auto) 0.10 Baso # (Auto) 0.00 Abs Immat Gran (auto) 0.00 Imm/Tot Granulo (auto) 0.2 Sodium 134 L Potassium 3.7 Chloride 105 Carbon Dioxide 21 Anion Gap 8 BUN 17 Creatinine 0.9 Estimated Creat Clear 60.99 Estimated GFR 76 Glucose 93 Lactate 2.0 H Calcium 8.9 Total Bilirubin 1.1 AST 26 ALT 21 Alkaline Phosphatase 95 Troponin I < 0.01 Total Protein 6.8 Albumin 3.9 Urine Color [place] A Urine Appearance Cloudy A Urine pH 5.5 Ur Specific [place] 1.025 Urine Protein 1+ A Urine Glucose (UA) Negative Urine Ketones 2+ A Urine Blood 1+ A Urine Nitrite Positive A Urine Bilirubin 1+ A Urine Urobilinogen 0.2 Ur Leukocyte Esterase 1+ A Urine RBC 0-2 Urine WBC 50-100 A Ur Squamous Epith Cells Few Urine Bacteria Few A SARS-CoV-2 (PCR) Negative SARS-CoV-2 Influenza Type A (PCR) Negative PCR FLU A Influenza Type B (PCR) Negative PCR FLU B RSV (PCR) Negative PCR RSV POC Creatinine 1.0 05/28/24 23:40 WBC RBC Hgb Hct MCV MCH MCHC RDW Coeff of [place] Plt Count Neut % (Auto) Lymph % (Auto) [place] % (Auto) Eos % (Auto) Baso % (Auto) Neut # (Auto) Lymph # (Auto) [place] # (Auto) Eos # (Auto) Baso # (Auto) Abs Immat Gran (auto) Imm/Tot Granulo (auto) Sodium Potassium Chloride Carbon Dioxide Anion Gap BUN Creatinine Estimated Creat Clear Estimated GFR Glucose Lactate 1.0 Calcium Total Bilirubin AST ALT Alkaline Phosphatase Troponin I Total Protein Albumin Urine Color Urine Appearance Urine pH Ur Specific [place] Urine Protein Urine Glucose (UA) Urine Ketones Urine Blood Urine Nitrite Urine Bilirubin Urine Urobilinogen Ur Leukocyte Esterase Urine RBC Urine WBC Ur Squamous Epith Cells Urine Bacteria SARS-CoV-2 (PCR) Influenza Type A (PCR) Influenza Type B (PCR) RSV (PCR) POC Creatinine
[2024-05-29] MEDS: SODIUM CHLORIDE 0.9 % (FLUSH) 10 ML SYRINGE 5 ML IVF (08:08)
[2024-05-29 08:34] LABS: Lactate* 0.9 mmol/L (0.5-1.9)
[2024-05-29 08:35] LABS: Basophils Percent Auto 0.3 % (0.0-3.0); Eosinophils Percent Auto 4.5 % (0.0-7.0); Hematocrit 35.5 % (33.0-51.0); Hemoglobin* 11.6 gm/dL (12.0-16.0); Immature Granulocytes Pct Auto 0.2 %; Lymphocytes Percent Auto 10.3 % (20-44); Mean Corpuscular HGB Conc 33 gm/dL (32-36); Mean Corpuscular Hemoglobin 32 pg (26-34); Mean Corpuscular Volume 98 fL (80-100); Monocytes Percent Auto 5.3 % (0.0-11.0); Neutrophils Percent Auto 79.4 % (42.0-72.0); Platelet Count* 260 K/uL (140-440); RDW Coefficient of Variation % 13.7 % (11.5-15.5); Red Blood Count 3.63 m/uL (4.00-5.20); White Blood Count* 11.64 K/uL (4.50-11.00)
[2024-05-29 08:36] LABS: Slide Review Reflex No
[2024-05-29 08:58] LABS: Albumin* 2.8 g/dL (3.3-5.0); Chloride* 108 mmol/L (96-114); Sodium* 134 mmol/L (135-149)
[2024-05-29 09:01] LABS: Alanine Aminotransferase* 127 U/L (4-35); Alkaline Phosphatase* 116 U/L (40-150); Anion Gap 5 mEq/L (7-15); Aspartate Amino Transferase* 332 U/L (12-35); Bilirubin Total* 1.5 mg/dL (0.1-1.5); Blood Urea Nitrogen* 14 mg/dL (7-30); Carbon Dioxide* 21 mmol/L (20-32); Creatinine* 0.8 mg/dL (0.5-1.5); Est. Creatinine Clearance* 68.61; Estimated Glomerular Filt Rate 87 ml/min; Total Protein* 5.5 g/dL (6.0-8.3)
[2024-05-29 09:02] LABS: Calcium* 7.3 mg/dL (8.4-10.6); Glucose* 110 mg/dL (60-115)
[2024-05-29] MEDS: OXYCODONE 5 MG TABLET PO ×2 (11:04→17:19)
[2024-05-29] MEDS: 0.9 % SODIUM CHLORIDE 1000 ml 1,000 ML 500 ML IV (13:00)
--- NOTE | 2024-05-29 14:30 | PC.NURSE ---
Pt pleasant to care for. Afebrile. Hypotensive and tachycardic this shift, provider aware, IV NS bolus ordered. Pain controlled with PRN medications. Tolerating oral intake and ambulation in room well. No emesis or nausea this shift.
[2024-05-29] MEDS: cefTRIAXone 2 GM in 0.9 % SODIUM CHLORIDE Mini-bag 100 ML IVPB (21:34)
[2024-05-29] MEDS: ENOXAPARIN 40 MG/0.4 ML INJ SUBCUT (21:37)
[2024-05-30 02:58] VITALS: BP 135/72; PULSE 101; RESP 17; TEMP 37.3; O2SAT 90
[2024-05-30] MEDS: ACETAMINOPHEN 325 MG TABLET 650 MG PO ×2 (03:06→15:21)
[2024-05-30] MEDS: 0.9 % SODIUM CHLORIDE 1000 ml 1,000 ML 75 ML IV (03:07)
[2024-05-30] MEDS: ONDANSETRON 2 MG/ML inj 4 MG IVP (03:13)
[2024-05-30 06:35] LABS: Lactate* 0.7 mmol/L (0.5-1.9)
[2024-05-30 06:44] LABS: Basophils Absolute Auto 0.03 K/uL (0.00-0.30); Basophils Percent Auto 0.4 % (0.0-3.0); Eosinophils Percent Auto 9.9 % (0.0-7.0); Hematocrit 34.5 % (33.0-51.0); Immature Granulocytes Abs Auto 0.02 K/uL (0.00-0.30); Immature Granulocytes Pct Auto 0.2 %; Lymphocytes Absolute Auto 2.07 K/uL (0.90-2.90); Lymphocytes Percent Auto 24.4 % (20-44); Mean Corpuscular HGB Conc 32 gm/dL (32-36); Mean Corpuscular Hemoglobin 32 pg (26-34); Mean Corpuscular Volume 99 fL (80-100); Monocytes Percent Auto 9.2 % (0.0-11.0); Neutrophils Absolute Auto 4.75 K/uL (1.7-7.0); Neutrophils Percent Auto 55.9 % (42.0-72.0); Platelet Count* 266 K/uL (140-440); RDW Coefficient of Variation % 13.7 % (11.5-15.5); Red Blood Count 3.49 m/uL (4.00-5.20); White Blood Count* 8.49 K/uL (4.50-11.00)
--- NOTE | 2024-05-30 06:44 | PC.NURSE ---
Shift note ([id number]):?Patient pleasant, alert and oriented.?Ambulated to bathroom with stand by assist one to help with IV pole. Given PRN Tylenol for c/o headache rated 4/10 and PRN Zofran for c/o nausea. Reported not having any discomfort with urination this morning. Dark [place] colored urine. BPs 118/70 and 135/72.?
[2024-05-30 06:50] LABS: Slide Review Reflex No
[2024-05-30 07:00] VITALS: BP 126/69; PULSE 94; RESP 18; TEMP 36.8; O2SAT 93
[2024-05-30 07:01] LABS: Chloride* 111 mmol/L (96-114); Sodium* 137 mmol/L (135-149)
[2024-05-30 07:03] LABS: Blood Urea Nitrogen* 10 mg/dL (7-30); Creatinine* 0.7 mg/dL (0.5-1.5); Est. Creatinine Clearance* 78.41; Estimated Glomerular Filt Rate 102 ml/min
[2024-05-30 07:04] LABS: Alanine Aminotransferase* 88 U/L (4-35); Alkaline Phosphatase* 94 U/L (40-150); Anion Gap 6 mEq/L (7-15); Aspartate Amino Transferase* 93 U/L (12-35); Bilirubin Total* 0.4 mg/dL (0.1-1.5); Calcium* 7.5 mg/dL (8.4-10.6); Carbon Dioxide* 20 mmol/L (20-32); Glucose* 88 mg/dL (60-115); Total Protein* 5.4 g/dL (6.0-8.3)
[2024-05-30 07:26] LABS: Albumin* 2.6 g/dL (3.3-5.0)
--- NOTE | 2024-05-30 10:23 | NUTR.NU ---
RDN with diet education related to current diet order. Patient admitted for sepsis with UTI. Medical history includes but not limited to type 1 diabetes and celiac disease. Current weight 173lb 3.2oz; height 5ft 4in; BMI 29.7 kg/m2. Weight has been stable. Curent diet order is diabetic. Meal intakes have mainly been adequate at 75%+ since admit. RDN visited with patient whom reports following a gluten-free diabetic diet at home. She has a dexcom and reports this works well. She had no questions or concerns related to diabetic diet. She declined diet education at this time. Her las A1C was 7.3%. No nutrition interventions at this time. RDN will continue to monitor and follow-up prn.
[2024-05-30 11:00] VITALS: BP 131/70; PULSE 102; RESP 18; TEMP 36.9; O2SAT 95
[2024-05-30 15:00] VITALS: BP 126/67; PULSE 93; RESP 18; TEMP 36.9; O2SAT 93
--- NOTE | 2024-05-30 16:02 | PM.IMPN1 ---
Assessment and Plan Assessment and plan (1) Sepsis: Problem comment: - ER: WBC of 20 with PMN predominance, BP 83/46, HR 120s, Tmax 99.8, lactate 2.0 - resolved by am of 05/30 - cultures are negative; I wonder if she had acute gastroenteritis vs paritally treated UTI. Her UA suggested ongoing infection but culture neg. -continue ceftriaxone until cultures are 48-72 hours neg Status: Acute (2) Type 1 diabetes mellitus: Problem comment: - diagnosed at age 2, has DexCom and insulin pump, last A1C 7.3 - increases risk of complications from UTI/sepsis Status: Chronic (3) Elevated LFTs: Problem comment: - noted 05/29/24, asymptomatic - no abnormalities on 05/28/24 CT scan - likely 2/2 shock liver in the setting of acute illness, negative GC testing 12/09 -improving 05/30 - follow, monitor for symptoms Status: Acute (4) Urinary tract infection: Problem comment: - not as sure as 05/29 that is the cause. cx neg. bc ngtd. - on Ceftriaxone (05/28), awaiting cultures Status: Acute Subjective Date Seen: 05/30/24 Interval history: Daily Progress Note - Hospital Medicine #: 2 CC: UTI, Sepsis 24 HOUR UPDATE: Much improved; feels puffy from fluids. no fever. Notable Labs, Micro, Rads, Interventions: Afebrile Blood pressure has normalized Mildly tachycardic Respiratory status-unlabored. Respiratory rate 18. Satting 95% on room air. White blood cell count down from 20.5-8.49. Mild anemia 13.9 down to 11.0 Electrolytes have improved. Transaminitis is improving CT reviewed from admission. UC growing 100K lactobacillus BC NGTD Objective: alert; NAD. Vitals: see above Lungs: Clear. Cardiac: S1S2. abdomen: benign. Disposition/Potential discharge - Home 24 hours. Today I spent 50minutes seeing the patient, reviewing Expanse and EPIC notes/diagnostics, discussing the care plan with our care time that includes social work, PT/OT, pharmacy, RT, assisted and documenting my impressions and plan in the medical record. Exam Const: Vital Signs, click to edit/add: Vital Signs - 24 hr 05/29/24 19:00 05/29/24 23:00 05/30/24 02:58 Temperature 98.9 F 98.8 F 99.2 F Pulse Rate [Right Pulse Oximeter] 99 101 H 101 H Respiratory Rate 16 21 17 Blood Pressure [Ri ght Arm] 101/56 L 118/70 135/72 Pulse Oximetry 90 92 90 Oxygen Delivery Me thod Room Air Room Air Room Air 05/30/24 07:00 05/30/24 07:00 05/30/24 11:00 Temperature 98.3 F 98.4 F Pulse Rate [Right Pulse Oximeter] 94 94 102 H Respiratory Rate 18 18 18 Blood Pressure [Ri t Arm] 126/69 131/70 Pulse Oximetry 93 95 Oxygen Delivery Me thod Room Air Room Air Labs Labs: Laboratory Results - last 24 hr 05/30/24 06:00 WBC 8.49 RBC 3.49 L Hgb 11.0 L Hct 34.5 MCV 99 MCH 32 MCHC 32 RDW Coeff of Shaheen 13.7 Plt Count 266 Neut % (Auto) 55.9 Lymph % (Auto) 24.4 [place] % (Auto) 9.2 Eos % (Auto) 9.9 H Baso % (Auto) 0.4 Neut # (Auto) 4.75 Lymph # (Auto) 2.07 [place] # (Auto) 0.80 Eos # (Auto) 0.80 H Baso # (Auto) 0.03 Abs Immat Gran (auto) 0.02 Imm/Tot Granulo (auto) 0.2 Sodium 137 Potassium 4.0 Chloride 111 Carbon Dioxide 20 Anion Gap 6 L BUN 10 Creatinine 0.7 Estimated Creat Clear 78.41 Estimated GFR 102 Glucose 88 Lactate 0.7 Calcium 7.5 L Total Bilirubin 0.4 AST 93 H ALT 88 H Alkaline Phosphatase 94 Total Protein 5.4 L Albumin 2.6 L
[2024-05-30 17:01] LABS: C Reactive Protein* 5.8 mg/dL (0.5-1.0)
[2024-05-30 17:01] LABS: C Reactive Protein* 3.9 mg/dL (0.5-1.0)
--- NOTE | 2024-05-30 18:56 | PC.NURSE ---
End of Shift: Patient pleasant and cooperative, A&O. VSS, afebrile. SpO2 maintained above 90% on RA. Patient reports pain in her head this shift, managed with PRN medication. Tolerating regular diet. Independent in room.
[2024-05-30 19:00] VITALS: BP 142/74; PULSE 77; RESP 18; TEMP 36.7; O2SAT 98
[2024-05-30 19:22] LABS: Appearance Urine Clear (Clear); Bilirubin Urine Negative (Negative); Blood Urine Negative (Negative); Color Urine Yellow (Yellow); Glucose Urine Trace (Negative); Ketones Urine Negative (Negative); Leukocyte Esterase Urine Negative (Negative); Nitrite Urine Negative (Negative); Protein Urine Negative (Negative); Urobilinogen Urine 0.2 (0.2-1.0)
[2024-05-30] MEDS: ENOXAPARIN 40 MG/0.4 ML INJ SUBCUT (20:29)
[2024-05-30] MEDS: cefTRIAXone 2 GM in 0.9 % SODIUM CHLORIDE Mini-bag 100 ML IVPB (20:29)
[2024-05-30] MEDS: SODIUM CHLORIDE 0.9 % (FLUSH) 10 ML SYRINGE 5 ML IVF (20:30)
[2024-05-30 23:00] VITALS: BP 121/60; PULSE 77; PULSE 80; RESP 16; TEMP 36.9; O2SAT 96
[2024-05-31 03:00] VITALS: BP 134/75; PULSE 82; RESP 16; TEMP 37; O2SAT 93
[2024-05-31] MEDS: OXYCODONE 5 MG TABLET PO (04:05)
[2024-05-31] MEDS: PHENAZOPYRIDINE HCL 200 MG TABLET PO (05:36)
--- NOTE | 2024-05-31 06:00 | PC.NURSE ---
End of shift report [id number]: Pleasant and cooperative with cares. Pain to lower abdomen reported, patient states that she is not having pain with urination but once she lays back down after voiding her lower abdomen begins to cramp and be painful. Call placed to [facility] and one time order for pyridium ordered and follow up with day hospitalist. Denies any flank pain. Appetite fair, patient at 50% of dinner which was fruit and cottage cheese, patient reports that her appetite is coming back but in general she doesn't eat large amounts due to gastroparesis. Independent with transfers and ambulation.
[2024-05-31 06:03] LABS: Basophils Absolute Auto 0.02 K/uL (0.00-0.30); Basophils Percent Auto 0.3 % (0.0-3.0); Eosinophils Percent Auto 8.7 % (0.0-7.0); Hematocrit 35.2 % (33.0-51.0); Hemoglobin* 11.6 gm/dL (12.0-16.0); Immature Granulocytes Abs Auto 0.01 K/uL (0.00-0.30); Immature Granulocytes Pct Auto 0.1 %; Lymphocytes Absolute Auto 1.75 K/uL (0.90-2.90); Lymphocytes Percent Auto 23.9 % (20-44); Mean Corpuscular HGB Conc 33 gm/dL (32-36); Mean Corpuscular Hemoglobin 32 pg (26-34); Mean Corpuscular Volume 96 fL (80-100); Monocytes Percent Auto 11.9 % (0.0-11.0); Neutrophils Absolute Auto 4.03 K/uL (1.7-7.0); Neutrophils Percent Auto 55.1 % (42.0-72.0); Platelet Count* 280 K/uL (140-440); RDW Coefficient of Variation % 13.3 % (11.5-15.5); Red Blood Count 3.66 m/uL (4.00-5.20); White Blood Count* 7.32 K/uL (4.50-11.00)
[2024-05-31 06:07] LABS: Slide Review Reflex No
[2024-05-31 06:16] LABS: Chloride* 109 mmol/L (96-114); Sodium* 136 mmol/L (135-149)
[2024-05-31 06:17] LABS: Potassium* 3.5 mmol/L (3.6-5.1)
[2024-05-31 06:19] LABS: Alanine Aminotransferase* 65 U/L (4-35); Aspartate Amino Transferase* 44 U/L (12-35); Blood Urea Nitrogen* 6 mg/dL (7-30); Creatinine* 0.7 mg/dL (0.5-1.5); Est. Creatinine Clearance* 78.41; Estimated Glomerular Filt Rate 102 ml/min
[2024-05-31 06:20] LABS: Alkaline Phosphatase* 95 U/L (40-150); Anion Gap 6 mEq/L (7-15); Bilirubin Total* 0.4 mg/dL (0.1-1.5); Carbon Dioxide* 21 mmol/L (20-32); Glucose* 95 mg/dL (60-115); Total Protein* 5.9 g/dL (6.0-8.3)
[2024-05-31 06:23] LABS: C Reactive Protein* 2.3 mg/dL (0.5-1.0)
[2024-05-31 07:00] VITALS: BP 123/67; PULSE 95; RESP 13; TEMP 37; O2SAT 92
[2024-05-31 11:52] VITALS: BP 129/70; PULSE 90; RESP 16; TEMP 36.8; O2SAT 95
[2024-05-31] MEDS: SODIUM CHLORIDE 0.9 % (FLUSH) 10 ML SYRINGE 5 ML IVF (13:36)
[2024-05-31] MEDS: CIPROFLOXACIN 500 MG TABLET PO (13:38)
[2024-05-31 14:29] VITALS: BP 139/73; PULSE 91; RESP 15; TEMP 35.9; O2SAT 97
--- NOTE | 2024-05-31 15:03 | PM.DS1 ---
DS: Providers Provider Date Seen: 05/31/24 Date of admission: 05/29/24 00:33 Primary care physician: Pedro Bedoya MD Admitting Clinician: Mayank Peterson MD Attending Physician on discharge: Emilie Juarez MD [place] [facility] Date of Discharge: 05/31/24 DS: Diagnosis Discharge Diagnosis (1) Urinary tract infection: Status: Acute Problem details: - ultimately the urine culture did not grow a pathogen. This is either are likely a sampling error, or a incomplete treatment but suppressed original infection. - Ceftriaxone x2 doses of 2 g. Follow on therapy with ciprofloxacin for a total of 5 days of antibiotic treatment (2) Sepsis: Status: Acute Problem details: - blood cultures negative. Urine culture lactobacillus. MRSA pending. Sepsis indicators have all resolved. (3) Type 1 diabetes mellitus: Status: Chronic Problem details: - diagnosed at age 2, has DexCom and insulin pump, last A1C 7.3 - increases risk of complications from UTI/sepsis (4) Elevated LFTs: Status: Acute Problem details: - noted 05/29/24, asymptomatic - no abnormalities on 05/28/24 CT scan - likely 2/2 shock liver in the setting of acute illness, negative GC testing 12/09 -improving 05/30 - Down trending and can be followed up as a outpatient. DS: Summary Hospital Course Hospital Course: FINAL DIAGNOSIS/FOLLOW UP ISSUES: 1. Sepsis related to partially treated UTI. She is immunocompromised as a type 1 diabetic. Her initial E coli was treated with Bactrim which ultimately was shown to be resistant. The following Keflex was intermediate at best. Her abdominal pelvic CT showed a thickened bladder. Her UA on admission was indicated of a of a infection. Follow-up urine culture will necessary to assure clearance. 2. Transaminitis. Likely related to the sepsis. Down trended throughout her stay. This should be followed up as an Outpatient. 3. Type 1 diabetes. Followed with her Dexcom. Stable. BRIEF HOSPITAL COURSE: Patient was admitted for 3 days. Synopsis of acute inpatient issues are outlined above. Chronic medical conditions with notable findings outlined above. Debora had been diagnosed with the UTI in the outpatient setting. The antibiotics were not sensitive to her current infection. She is immunocompromised with type 1 diabetes. She presented in sepsis. She was treated with IV ceftriaxone. Ultimately her urine and blood did not grow specific pathogens. Admission her CT abdomen pelvis did show a thickened urinary bladder likely reactive and infected. Her urine on admission did show evidence of infection. This cleared when rechecked during her hospital stay. her sepsis resolved, she was discharged on oral Cipro. DISCHARGE MEDICATIONS: See Reconciled list - SIGNIFICANT CHANGES: Short-term Cipro therapy Specific instructions to the patient and follow-up are outlined below. REVIEW OF SYSTEMS No new chest pain or dyspnea Pain controlled No voiding difficulties Tolerating diet challenge PHYSICAL EXAM: CONSTITUTIONAL: Conversive, good historian. A/O. Knows setting and context. GENERAL: Well-developed and above ideal body weight, in no respiratory distress. VITAL SIGNS: see record. HEENT: Sclerae are anicteric. No petechiae. CARDIAC: rhythm is regular. There is no S3 or rub. No harsh murmurs. Extremities show trace edema with symmetrical pulses. PULM: good air entry with no wheeze. NEURO: Speech is fluent. A brief neurologic exam is negative. SKIN: No rashes, petechiae, concerning changes PSYCHIATRIC: Euthymic. DISPOSITION: Self-care, home Time spent on discharge 37 minutes. Status at Discharge Functional status at discharge: independent ambulation Overall status at discharge: patient is progressing back to baseline Time Spent with Patient Time attestation: Total time spent providing and/or coordinating discharge services: Time spent: Greater than 30 minutes Exam Const: Vital Signs, click to edit/add: Vital Signs - 24 hr 05/30/24 19:00 05/30/24 23:00 05/30/24 23:00 Temperature 98.1 F 98.4 F Pulse Rate [Right Pulse Oximeter] 77 77 80 Respiratory Rate 18 16 16 Blood Pressure [Ri ght Arm] 142/74 H 121/60 Pulse Oximetry 98 96 Oxygen Delivery Me thod Room Air Room Air 05/31/24 03:00 05/31/24 07:00 05/31/24 11:52 Temperature 98.6 F 98.6 F 98.3 F Pulse Rate [Right Pulse Oximeter] 82 95 90 Respiratory Rate 16 13 16 Blood Pressure [Ri ght Arm] 134/75 123/67 129/70 Pulse Oximetry 93 92 95 Oxygen Delivery Me thod Room Air Room Air Room Air 05/31/24 14:29 Temperature 96.6 F L Pulse Rate [Right Pulse Oximeter] 91 Respiratory Rate 15 Blood Pressure [Ri ght Arm] 139/73 Pulse Oximetry 97 Oxygen Delivery Me thod Room Air DS: Data Data Completed and Pending Labs on day of discharge: Labs from last 24 hours 05/31/24 05/30/24 05/30/24 05:44 18:40 16:16 WBC 7.32 RBC 3.66 L Hgb 11.6 L Hct 35.2 MCV 96 MCH 32 MCHC 33 RDW Coeff of Shaheen 13.3 Plt Count 280 Neut % (Auto) 55.1 Lymph % (Auto) 23.9 [place] % (Auto) 11.9 H Eos % (Auto) 8.7 H Baso % (Auto) 0.3 Neut # (Auto) 4.03 Lymph # (Auto) 1.75 [place] # (Auto) 0.90 Eos # (Auto) 0.60 H Baso # (Auto) 0.02 Abs Immat Gran (auto) 0.01 Imm/Tot Granulo (auto) 0.1 Sodium 136 Potassium 3.5 L Chloride 109 Carbon Dioxide 21 Anion Gap 6 L BUN 6 L Creatinine 0.7 Estimated Creat Clear 78.41 Estimated GFR 102 Glucose 95 Calcium 8.0 L Total Bilirubin 0.4 AST 44 H ALT 65 H Alkaline Phosphatase 95 C-Reactive Protein 2.3 H Total Protein 5.9 L Albumin 3.0 L Urine Color Yellow Urine Appearance Clear Urine pH 6.0 Ur Specific [place] 1.010 Urine Protein Negative Urine Glucose (UA) Trace A Urine Ketones Negative Urine Blood Negative Urine Nitrite Negative Urine Bilirubin Negative Urine Urobilinogen 0.2 Ur Leukocyte Esterase Negative Lab Acknowledgement Test Added 05/30/24 05/29/24 06:00 08:29 WBC RBC Hgb Hct MCV MCH MCHC RDW Coeff of Shaheen Plt Count Neut % (Auto) Lymph % (Auto) [place] % (Auto) Eos % (Auto) Baso % (Auto) Neut # (Auto) Lymph # (Auto) [place] # (Auto) Eos # (Auto) Baso # (Auto) Abs Immat Gran (auto) Imm/Tot Granulo (auto) Sodium Potassium Chloride Carbon Dioxide Anion Gap BUN Creatinine Estimated Creat Clear Estimated GFR Glucose Calcium Total Bilirubin AST ALT Alkaline Phosphatase C-Reactive Protein 3.9 H 5.8 H Total Protein Albumin Urine Color Urine Appearance Urine pH Ur Specific [place] Urine Protein Urine Glucose (UA) Urine Ketones Urine Blood Urine Nitrite Urine Bilirubin Urine Urobilinogen Ur Leukocyte Esterase Lab Acknowledgement Preliminary micro results at discharge 05/28/24 21:30 Blood Culture - Preliminary Blood NO GROWTH AFTER 48 HOURS 05/28/24 21:56 Blood Culture - Preliminary Blood NO GROWTH AFTER 48 HOURS Discharge Plan Discharge Disposition: Home, Self-Care Date of Admission: 05/29/24 00:33 Attending Provider on Discharge: Emilie Juarez Primary Care Provider: Pedro Bedoya Condition: Improved Anticipated Discharge Date/Time: 05/31/24 11:57 Discharge Medications: New ciprofloxacin HCl 500 mg tablet 500 mg PO BID Qty: 5 0RF Continued insulin lispro [Humalog U-100 Insulin] 100 unit/mL solution 30 unit subcut QDAY Qty: 20 5RF Mirena 21 mcg/24 hours (8 yrs) 52 mg intrauterine device 1 device intrauterine ONCE Rx Instructions: as a single dose (DME) t:slim X2 Control-IQ Misc See Rx Instructions .Route Rx Instructions: As directed cholecalciferol (vitamin D3) [Vitamin D3] 25 mcg (1,000 unit) capsule 25 mcg PO QDAY Rx Instructions: stops during summer (DME) Dexcom G6 Transmitter Device See Rx Instructions .Route Qty: 1 0RF Rx Instructions: As directed (DME) Dexcom G6 Sensor Device See Rx Instructions .Route Qty: 6 5RF Rx Instructions: As directed Discharge Orders: Discharge Order (Routine); Ordered 05/31/24 Ordered By: Emilie Juarez Patient Education: Ciprofloxacin (By mouth), Urinary Tract Infection in Women (DC) Activity Level: Activity as Tolerated Discharge Diet: Diabetic Follow Up Appointments: Pedro Bedoya MD [Primary Care Provider] - 06/09/24 11:15 am ([facility] for follow[facility].) Forms: [facility] Info Instructions
== END 2024-05-31 14:25 | disposition home or self-care (01) | DRG 872 ==
LOC: ED 22:49 → MEDSURG 05-29 00:36
PROVIDERS: Family Medicine; Admitting Provider Internal Medicine; Emergency Provider Student in an Organized Health Care Education/Training Program; PCP Family Medicine; Visit Provider Internal Medicine
DX: A41.9 Sepsis, unspecified organism (principal); N39.0 Urinary tract infection, site not specified; D84.81 Immunodeficiency due to conditions classified elsewhere; R74.01 Elevation of levels of liver transaminase levels; E10.3553 Type 1 diabetes mellitus with stable proliferative diabetic retinopathy, bilateral; E10.43 Type 1 diabetes mellitus with diabetic autonomic (poly)neuropathy; K31.84 Gastroparesis; Z79.4 Long term (current) use of insulin; K90.0 Celiac disease; E78.2 Mixed hyperlipidemia; Z87.891 Personal history of nicotine dependence
CPT/HCPCS: 36415; 74177; 80053; 81001; 81003; 82565; 82962; 83605; 84484; 85025; 86140; 87040; 87086; 87631; 93005; 99285; 99291; A9270; J0696; J1650; J2270; J2405; J7030; Q9967

== ENCOUNTER 2024-06-06 14:55 | Outpatient (CLI) | payer OTHER, SELFPAY | END 2024-06-06 14:56 | disposition home or self-care (01) | PROVIDERS: PCP Family Medicine; Visit Provider Family Medicine | DX: E10.65 Type 1 diabetes mellitus with hyperglycemia (principal); E78.2 Mixed hyperlipidemia; R79.89 Other specified abnormal findings of blood chemistry; Z79.4 Long term (current) use of insulin | CPT/HCPCS: 80048; 80076; 85025 ==

== ENCOUNTER 2024-06-20 16:53 | Outpatient (CLI) | payer OTHER, SELFPAY | END 2024-06-20 16:54 | disposition home or self-care (01) | PROVIDERS: PCP Family Medicine; Visit Provider Family Medicine | DX: E11.43 Type 2 diabetes mellitus with diabetic autonomic (poly)neuropathy (principal); K31.84 Gastroparesis; R05.9 Cough, unspecified; N39.0 Urinary tract infection, site not specified; R09.89 Other specified symptoms and signs involving the circulatory and respiratory systems | CPT/HCPCS: 80048; 86140 ==

== ENCOUNTER 2024-12-12 09:04 | Outpatient (CLI) | payer OTHER, SELFPAY | END 2024-12-12 09:05 | disposition home or self-care (01) | PROVIDERS: PCP Family Medicine; Visit Provider Family Medicine | DX: E10.9 Type 1 diabetes mellitus without complications (principal); E78.2 Mixed hyperlipidemia; R53.83 Other fatigue | CPT/HCPCS: 80048; 80061; 82607; 84443 ==

== ENCOUNTER 2024-12-29 11:48 | Outpatient (CLI) | payer OTHER, SELFPAY ==
--- NOTE | 2025-01-24 09:37 | W.PM.SLEEP ---
Sleep Study Details Details Interpreting Provider: Natalie Date of Sleep Study: 12/29/24 Sleep Study Details: STUDY TYPE:? Home unattended ? BMI:? 29.35 ORDERING PROVIDER:? Aureliano INDICATION:? Concern for sleep apnea ? SLEEP SUMMARY:? 441 minutes monitored RESPIRATORY SUMMARY:? AHI 4.4 Low oxygen 90 Snoring 94.6% PERIODIC LIMB MOVEMENTS OF SLEEP:? Not recorded CARDIAC:? Range 81-119, mean 99.8 beats per minute IMPRESSION:? Primary snoring. There is no clinically significant obstructive sleep apnea noted on this study. The patient's baseline heart rate is quite high at 99.8 mean. Highest was 119 during this sleep time and during time in bed. RECOMMENDATION: Further cardiac evaluation may be indicated.
== END 2024-12-29 11:49 | disposition home or self-care (01) ==
LOC: SLEEP 11:49
PROVIDERS: PCP Family Medicine; Visit Provider Family Medicine
DX: R06.83 Snoring (principal)
CPT/HCPCS: 95806

== ENCOUNTER 2025-01-16 10:29 | Outpatient (CLI) | payer OTHER, SELFPAY ==
[2025-01-18 17:11] LABS: HPV Source Cervical
[2025-01-20 11:59] LABS: Pap Test Digital Imaging Done
[2025-01-20 17:28] LABS: HPV Genotype 16 by TMA Not Detected; HPV Genotype 18/45 by TMA Detected
== END 2025-01-16 10:30 | disposition home or self-care (01) ==
PROVIDERS: PCP Family Medicine; Visit Provider Obstetrics & Gynecology
DX: Z12.4 Encounter for screening for malignant neoplasm of cervix (principal); N81.2 Incomplete uterovaginal prolapse
CPT/HCPCS: 87086; 87624; 87625; 88141; 88142; 88175